=== PATIENT | female | born 1935 | race African-American/Black ===

== ENCOUNTER 2025-10-18 10:28 | Outpatient (AMB) | payer OTHER, SELFPAY ==
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
--- OUTSIDE RECORDS SUMMARY | 2025-10-13 11:55 | XMS_ITS | Encounter Summary ---
Author Organization [facility] Address [address] [place] [address] Care Team Providers Care Crusher Machine Operator Name Role Phone Eugene Lyons MD Primary Care Provider [phone] Encounter Details Date Type Department Care Team (Late Contact Info) Description 10/13/2025 11:55 AM EST Lab Draw Station - [place] [address] [place] [address] Hyperlipidemia, unspecified hyperlipidemia type; Vaginal discharge Social History Tobacco Use Types [...] AM EST documented as of this encounter Plan of Treatment Upcoming Encounters Date Type Department Care Team (Late st Contact Info) Description 10/19/2025 9:15 AM EST Office Visit Orthopedic Surgery - [place] [address] [phone] Tom Morgan, DPM [address] [phone] 10/19/2025 10:30 AM EST Treatment [facility] [address] [phone] Kiya Chahal, PT 10/19/2025 1:30 PM EST Appointment Ultrasound - [address] [phone] 10/25/2025 8:30 AM EST Treatment [address] [phone] Kiya Chahal, PT 11/01/2025 10:30 AM EST Treatment [address] [phone] Kiya Chahal, PT 11/08/2025 10:30 AM EST Treatment [address] [phone] Kiya Chahal, PT 01/01/2026 10:00 AM EST Consult Internal Medicine - [address] [phone] Eugene Lyons MD [address] [place] [address] 01/16/2026 8:00 AM EST Consult Orthopedic Surgery - [place] [address] [phone] Tom Morgan DPM [address] [phone] 01/19/2026 7:30 AM EST Hospital Encounter [facility] [place] [address] [place] [phone] Tom Morgan DPM [address] [phone] 01/19/2026 7:30 AM EST - 01/19/2026 10:00 AM EST Surgery [facility] [place] [address] [place] [phone] Tom Morgan, DPM [address] [phone] IMPLANT TO RIGHT DIGIT OR LESSER METATARSAL [65571 (CPT ) +2 more] 02/01/2026 10:00 AM EDT Office Visit Orthopedic Surgery - [place] [address] [phone] Tom Morgan, DPM [address] [phone] 10/08/2026 12:30 PM EST Office Visit Internal Medicine - [address] [phone] Eugene Lyons MD [address] [place] [phone] Scheduled Procedures Name Priority Associated Diagnoses Date/Ti [...] not met documented as of this encounter Procedures Procedure Name Priority Date/Time Associated Diagnosis Comments URINALYSIS WITH REFLEX MICROSCOPIC AND CULTURE Routine 10/13/2025 11:59 AM EST Vaginal discharge BAJWA URINE CULTURE TUBE Routine 10/13/2025 11:59 AM EST Vaginal discharge URINALYSIS WITH REFLEX MICROSCOPIC AND CULTURE Routine 10/13/2025 11:59 AM EST Vaginal discharge COMPREHENSIVE METABOLIC PANEL Routine 10/13/2025 11:59 AM EST Hyperlipidemia, unspecified hyperlipidemia type documented in this encounter Results * Bajwa urine culture tube (10/13/2025 11:59 AM EST) Pathologist [facility] Extra Tube Hold for add-ons. 10/13/2025 2:01 PM [facility] Comment:Auto resulted. Urine Urine specimen obtained by clean catch procedure / Unknown Non-blood Collection / Unknown 10/13/2025 11:59 AM EST 10/13/2025 11:59 AM EST us Mya Baker NP LAB URINE ORDERABLES Final R esult [facility] [address] [place] [address], * (ABNORMAL) Urinalysis with reflex microscopic and culture (10/13/2025 11:59 AM EST) Pathologist [facility] Specific [place] Urine 1.029 1.003 - 1.030 LAB URINALYSIS - AUTOMATED METHOD 10/13/2025 2:06 PM [facility] pH, Urine 5.5 5.0 - 8.0 pH LAB URINALYSIS - AUTOMATED METHOD 10/13/2025 2:06 PM [facility] Leukocytes, Urine Negative Negative LAB URINALYSIS - AUTOMATED METHOD 10/13/2025 2:06 PM [facility] Nitrite, Urine Negative Negative LAB URINALYSIS - AUTOMATED METHOD 10/13/2025 2:06 PM [facility] Protein, Urine Negative <=Trace mg/dL LAB URINALYSIS - AUTOMATED METHOD 10/13/2025 2:06 PM [facility] Glucose, Urine Negative Negative mg/dL LAB URINALYSIS - AUTOMATED METHOD 10/13/2025 2:06 PM [facility] Ketones, Urine Trace(A) Negative mg/dL LAB URINALYSIS - AUTOMATED METHOD 10/13/2025 2:06 PM [facility] Urobilinogen, Urine 0.2 0.2 - 1.0 mg/dL LAB URINALYSIS - AUTOMATED METHOD 10/13/2025 2:06 PM [facility] Bilirubin, Urine Negative Negative LAB URINALYSIS - AUTOMATED METHOD 10/13/2025 2:06 PM [facility] Blood, Urine Negative Negative LAB URINALYSIS - AUTOMATED METHOD 10/13/2025 2:06 PM [facility] Urine Urine specimen obtained by clean catch procedure / Unknown Non-blood Collection / Unknown 10/13/2025 11:59 AM EST 10/13/2025 11:59 AM EST us Mya Baker RN ED LAB URINE ORDERABLES Final R esult [facility] [address] [place] [address], * (ABNORMAL) Comprehensive metabolic panel (10/13/2025 11:59 AM EST) Sodium 140 133 - 145 mmol/L 10/13/2025 6:41 PM [facility] Potassium 4.1 3.5 - 5.5 mmol/L 10/13/2025 6:41 PM [facility] Chloride 100 96 - 110 mmol/L 10/13/2025 6:41 PM [facility] CO2 34(H) 21 - 32 mmol/L 10/13/2025 6:41 PM [facility] Anion Gap 6 3 - 11 10/13/2025 6:41 PM [facility] Glucose 112(H) 70 - 100 mg/dL 10/13/2025 6:41 PM [facility] BUN 18 5 - 25 mg/dL 10/13/2025 6:41 PM [facility] Creatinine 0.92 0.50 - 1.10 mg/dL 10/13/2025 6:41 PM [facility] eGFR 60 >=60 mL/min/1. 73m2 10/13/2025 6:41 PM [facility] Comment:Calculation based on the Chronic Kidney Disease Epidemiology Collaboration (CKD-EPI) equation refit without adjustment for race. BUN/Creatinine Ratio 19.6 10/13/2025 6:41 PM [facility] Calcium 7.8(L) 8.5 - 10.5 mg/dL 10/13/2025 6:41 PM [facility] AST (SGOT) 26 10 - 42 unit/L 10/13/2025 6:41 PM [facility] ALT (SGPT) 19 10 - 60 unit/L 10/13/2025 6:41 PM [facility] Alkaline Phosphatase 104 42 - 121 unit/L 10/13/2025 6:41 PM [facility] Total Protein 6.3 6.0 - 8.0 g/dL 10/13/2025 6:41 PM [facility] Albumin 3.7 3.2 - 5.0 g/dL 10/13/2025 6:41 PM [facility] Total Bilirubin 0.2 0.0 - 1.4 mg/dL 10/13/2025 6:41 PM [facility] Blood Venous blood specimen / Unknown Venipuncture / Unknown 10/13/2025 11:59 AM EST 10/13/2025 11:59 AM EST us Mya Baker NP LAB BLOOD ORDERABLES Final R esult [facility] [address] [place] [address], documented in this encounter Visit Diagnoses Diagnosis 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 of joint of right foot Acquired hammer toe of right foot Hallux rigidus of right foot Hyperlipidemia, unspecified hyperlipidemia type Vaginal discharge Leukorrhea, not specified as infective 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 of joint of right foot Acquired hammer toe of right foot Hallux rigidus of right foot documented in this encounter Additional Health Concerns Assessment Noted Time PHQ-9 Depression Total Score: 0 10/04/20 25 12:16 PM EST documented as of this encounter Care Teams Crusher Machine Operator Relationship Specialty Start Date End Date Eugene Lyons MD [address] [place] [phone] PCP - General Internal Medicine 07/31/20 documented as of this encounter
--- NOTE | 2025-10-18 10:31 | A.PHYSOV_ITS ---
Vital Signs 10/18/25 10:36 Height 5 ft 6 in Weight 170 lb BMI 27.4 Intake Visit Reasons: 2nd opinion- neck pain Intake Note: Patient is a 89 year old female in office today for a follow up visit as a second opinion on her neck pain. Patient did see [facility] 08/2025. Negative Turner Apprentice Required: No Allergies pneumococcal vaccine Allergy (Unknown, Verified 10/18/25 10:39) Unknown HPI Comments Details: History of Present Illness The patient is an 89 year old individual presenting for evaluation of chronic neck pain and bilateral upper extremity paresthesias. The patient reports increasing right-sided neck and occipital pain with an associated popping sensation. The patient has a history of a multilevel cervical fusion at C4-C6, which was performed approximately 20 years ago and provided great relief. The patient feels that the effects of the previous surgery are now wearing out. Electrodiagnostic studies have shown mild carpal tunnel syndrome but were negative for cervical radiculopathy. For pain management, the patient has previously used topical diclofenac gel and Tylenol as needed. Currently, the patient is taking naproxen, which has provided significant improvement in pain. Patient presented accompanied by her daughter. Pain Description - Onset and Timing: The patient reports increasing chronic neck pain. - Location: The pain is located on the right side of the neck and the occipital area. - Quality and Character: The pain is associated with a popping or crackling sensation. - Radiation: The pain radiates up into the back of the head and occasionally to the front, behind the eye. - Relieving Factors: The patient reports pain is much better when taking naproxen. - Interference with Function: The patient reports being unable to drive due to the symptoms. Results - Imaging: - Cervical spine MRI (dated September 07, 2025): Findings show post-surgical changes from a prior fusion and degeneration above the surgical site. - The recent MRI was noted to not be significantly different from a prior MRI from September 18, 2024. - Tests and Diagnostics: - Electrodiagnostic evaluation of upper extremities: Consistent with mild carpal tunnel syndrome; negative for cervical radiculopathy. 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 Surgical History (Updated 10/09/25 @ 15:16 by Dina Bhat MA) H/O shoulder surgery (Unknown) History of neck surgery (Unknown) H/O: hysterectomy (Unknown) History of (Unknown) Social History (Updated 10/18/25 @ 10:37 by Dina Bhat MA) Alcohol intake: current Alcohol intake frequency: does not drink Patient Tobacco Use Status: Never used Tobacco Use of substances other than those prescribed or required for medical reasons: No Current occupational status: retired Review of Systems Narrative Review of Systems - Neurological: Reports bilateral upper extremity paresthesias and headaches originating from the neck. - Musculoskeletal: Reports chronic right-sided neck pain with popping sensations and leg pain. - Constitutional: Denies difficulty swallowing pills. Patient denies any fever or chills, denies change in bowel bladder habits Physical Exam Exam Exam: Physical Exam - Neck: Palpation elicits tenderness on the right side of the neck and over the occipital region. - Range of motion is significantly limited and tight. Her cervical range of motion was almost non-existent with painful end points in all directions. Neurological examination was nonfocal. Patient demonstrated no upper motor neuron signs. Vital Signs: BMI result Body Mass Index 27.4 Assessment & Plan Assessment & Plan (1) Spondylosis of cervical region without myelopathy or radiculopathy: Code(s): M47.812 - Spondylosis without myelopathy or radiculopathy, cervical region Category: Medical (2) Cervicocranial syndrome: Code(s): M53.0 - Cervicocranial syndrome Category: Medical Plan Pain Management - Affect: The patient expressed a desire to get rid of the pain rather than just manage it. - Analgesia: The patient is currently taking naproxen and reports it is making the patient feel much better. - Previously used topical diclofenac gel and Tylenol as needed. - Activities of Daily Living: The patient reports an inability to drive. - Adverse Effects: No adverse effects from current medications were reported. - Aberrant Drug-Related Behaviors: No aberrant drug-related behaviors were noted. Plan Patient was informed and verbally consented to the use of an ambient scribe for clinic note documentation during this visit. 1. 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 Surgical and non-surgical treatment options were discussed. A referral will be placed to [facility] for a surgical consultation to evaluate for a possible extension of the fusion. Radiofrequency neurotomy was presented as a Plan B for pain control if surgery is not pursued, with potential pain relief for a year to a year and a half. The patient can continue using naproxen for analgesia, and it was noted that meloxicam is a possible alternative. It was also a recommended to start hqvt-ctj-qzpzrvu turmeric at 2000 mg daily, ensuring it contains black pepper. My personal recommendation would be trial diagnostic medial branch blocks and radiofrequency neurotomy for right C2-C3 and C3-C4 facet mediated pain. 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 I reviewed the recent cervical spine MRI, explaining that it supports this diagnosis. We discussed treatment options, emphasizing that the goal is management rather than a cure. I explained that a surgical opinion could be sought, with a possible procedure being an extension of the existing fusion, which could reduce pain but would further limit neck motion. As an alternative, I described radiofrequency neurotomy as a pain control procedure that could provide relief for up to a year and a half, presenting it as a Plan B if surgery is not an option. The patient expressed a strong preference for a surgical evaluation, and we agreed to proceed with a referral to [facility]. We also discussed continuing naproxen for pain and adding tcxx-lil-zjcnkxv turmeric as a natural anti-inflammatory. I emphasized that for any intervention, particularly surgery, the benefits must outweigh the risks, especially considering the patient's age. Patient Instructions - A referral will be sent to the neurosurgery department at [facility] for a consultation to discuss surgical options for your neck pain. - Continue taking naproxen for pain relief as needed. - You may start taking an qfor-krr-rhhmwpb supplement called turmeric at a dose of 2000 mg per day. - When you buy it, make sure the label says it also contains black pepper. - Due to your current symptoms, you are unable to drive. - If the surgeons decide not to operate, we can discuss other options for pain control, such as a procedure called radiofrequency neurotomy. Orders: Referrals Neurosurgery Referral M47.812 - Spondylosis without myelopathy or radiculopathy, cervical region, M53.0 - Cervicocranial syndrome Coding Level of Care Code Est Pt Level 4 (07449) Complex visit Add On G2211 Diagnoses Spondylosis of cervical region without myelopathy or radiculopathy M47.812 Cervicocranial syndrome M53.0
[2025-10-18 10:36] VITALS: BMI 27.4
--- OUTSIDE RECORDS SUMMARY | 2025-10-18 12:00 | XMS_ITS | Encounter Summary ---
Author Organization [facility] Address [address] [place] [address] Care Team Providers Care Shuttle Hand Name Role Phone Eugene Lyons MD Primary Care Provider [phone] Reason for Visit * Reason Onset Date Comments Allergic Reaction 10/13/2025 Encounter Details Date Type Department Care Team (Late st Contact Info) Description 10/13/2025 Telephone Internal Medicine - [address] [phone] Eugene Lyons MD [address] [place] [id number] Social History Tobacco Use Types Packs/Day Years [...] AM EST documented as of this encounter Progress Notes * Donya Vinson RN - 10/13/2025 10:33 AM EST spoke to pt-reports of persisting arm swelling/puffiness;feels itchy deep inside since getting a pneumococcal vaccn on 10/04/25. denies any redness/bleeding. she applied cool compresses with some relief. appt made. * Elidia Robert - 10/13/2025 10:14 AM EST //Patient call requires triage: Symptoms patient is presenting: arm is swollen and puffy from flu shot given at appt How long has patient had these symptoms?: 10/04/25 For ALL patients calling to schedule any appointment (routine, sick visit, follow up, consult, etc.) in the outpatient setting please ask the following questions: Do you have fever of higher than 101, sore throat with difficulty swallowing or severe shortness ofbreath? no If YES to any of these above symptoms, send a message to triage and do not book. Red dot. If no, an audio or video visit should be booked. Have you had close contact with someone with Coronavirus in the last 14 days? no Have you traveled abroad? no Have you traveled recently to another state outside of [place], [place], [place], [place], [place], [place], [place]? no o If yes, did you quarantine for 14 days or have a negative covid test? no If yes to any of the above, patient is not to be scheduled in office until after 14 day quarantine or negative covid test. If pain or injury related was it due to an accident at work or from a motor vehicle accident? If yes, date of accident/Injury: No If yes, gather 3rd green party insurance information Third Green Party Information: not applicable PCP: Eugene Lyons MD Payor: [facility] MEDICARE ADVANTAGE / Plan: [employer] MED[employer]VANTAGE / Product Type: *No Product type* / documented in this encounter Plan of Treatment Upcoming Encounters Date Type Department Care Team (Late st Contact Info) Description 10/19/2025 9:15 AM EST Office Visit Orthopedic Surgery - [place] [address] [phone] Tom Morgan DPM [address] [phone] 10/19/2025 10:30 AM EST Treatment [address] [phone] Kiya Chahal, PT 10/19/2025 1:30 PM EST Appointment Ultrasound - [address] [phone] 10/25/2025 8:30 AM EST Treatment [address] [phone] Kiya Chahal, PT 11/01/2025 10:30 AM EST Treatment [address] [phone] Kiya Chahal, PT 11/08/2025 10:30 AM EST Treatment [address] [phone] Kiya Chahal, PT 01/01/2026 10:00 AM EST Consult Internal Medicine - [address] [phone] Eugene Lyons MD [address] [place] [address] 01/16/2026 8:00 AM EST Consult Orthopedic Surgery - [place] [address] [phone] Tom Morgan DPM [address] [phone] 01/19/2026 7:30 AM EST Hospital Encounter [facility] [place] [address] [place] [phone] Tom Morgan DPM [address] [phone] 01/19/2026 7:30 AM EST - 01/19/2026 10:00 AM EST Surgery [facility] Main [place] [address] [place] [phone] Tom Morgan DPM [address] [phone] IMPLANT TO RIGHT DIGIT OR LESSER METATARSAL [65206 (CPT ) +2 more] 02/01/2026 10:00 AM EDT Office Visit Orthopedic Surgery - [place] [address] [phone] Tom Morgan DPM [address] [phone] 10/08/2026 12:30 PM EST Office Visit Internal Medicine - [address] [phone] Eugene Lyons MD [address] [place] [address] Scheduled Procedures Name Priority Associated Diagnoses Date/Ti [...] testing - Met Pt will complete B [place]-Hallpike tests for assessment of vestibular system involvement of dizziness - not met documented as of this encounter Visit Diagnoses Not on filedocumented in this encounter Additional Health Concerns Assessment Noted Time PHQ-9 Depression Total Score: 0 10/04/20 25 12:16 PM EST documented as of this encounter Care Teams Shuttle Hand Relationship Specialty Start Date End Date Eugene Lyons MD [address] [place] [address] PCP - General Internal Medicine 07/31/20 documented as of this encounter
--- OUTSIDE RECORDS SUMMARY | 2025-10-18 12:00 | XMS_ITS | Encounter Summary ---
Author Organization [facility] Address [address] [place] [address] Care Team Providers Care Grant Writer Name Role Phone Eugene Lyons MD Primary Care Provider [phone] Encounter Details Date Type Department Care Team (Late st Contact Info) Description 10/13/2025 [facility] [address] [place] [address] Violetta Dangelo MA Social History Tobacco Use Types Packs/Day Years [...] AM EST Office Visit Orthopedic Surgery - [place] [address] [phone] Tom Morgan, DPM [address] [phone] 10/19/2025 10:30 AM EST Treatment [facility] [address] [phone] Kiya Chahal, PT 10/19/2025 1:30 PM EST Appointment Ultrasound - [address] [phone] 10/25/2025 8:30 AM EST Treatment [address] [phone] Kiya Chahal, PT 11/01/2025 10:30 AM EST Treatment [address] [phone] Kiya Chahal, PT 11/08/2025 10:30 AM EST Treatment [address] [phone] Kiya Chahal, PT 01/01/2026 10:00 AM EST Consult Internal Medicine - [address] [phone] Eugene Lyons MD [address] [place] [address] 01/16/2026 8:00 AM EST Consult Orthopedic Surgery - [place] [address] [phone] Tom Morgan DPM [address] [phone] 01/19/2026 7:30 AM EST Hospital [facility] Main [place] [address] [place] [phone] Tom oMrgan DPM [address] [phone] 01/19/2026 7:30 AM EST - 01/19/2026 10:00 AM EST Surgery [facility] Main [place] [address] [place] [phone] Tom Morgan, DPM [address] [phone] IMPLANT TO RIGHT DIGIT OR LESSER METATARSAL [89032 (CPT ) +2 more] 02/01/2026 10:00 AM EDT Office Visit Orthopedic Surgery - [place] [address] [phone] Tom Morgan, DPM [address] [phone] 10/08/2026 12:30 PM EST Office Visit Internal Medicine - [address] [phone] Eugene Lyons MD [address] [place] [address] Scheduled Orders Name Type Priority Associated Diagnoses Orde r Schedule Comprehensive metabolic panel Lab Routine Low calcium levels Expected: 10/30/2025, Expires: 10/16/2026 Hemoglobin A1c Lab Routine Blood glucose elevated Expected: 10/16/2025, Expires: 04/16/2026 Scheduled Procedures Name Priority Associated Diagnoses Date/Ti ct IMPLANT TO DIGIT OR LESSER METATARSAL Acquired [...] documented as of this encounter Visit Diagnoses Diagnosis 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 of joint of right foot 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
--- OUTSIDE RECORDS SUMMARY | 2025-10-18 12:00 | XMS_ITS | Encounter Summary ---
Author Organization [facility] Address [address] [place] [address] Care Team Providers Care Garment Form Assembler Name Role Phone Eugene Lyons MD Primary Care Provider [phone] Encounter Details Date Type Department Care Team (Late Contact Info) Description 09/12/2025 Results Follow-Up Internal Medicine - [facility] [address] [place] [address] Mya Rosario, ANGEL [address] [place] [address] Social History Tobacco Use Types Packs/Day Years [...] Encounters Date Type Department Care Team (Late Contact Info) Description 10/19/2025 9:15 AM EST Office Visit Orthopedic Surgery - [place] [address] [phone] Tom Morgan, DPM [address] [phone] 10/19/2025 10:30 AM EST Treatment [address] [phone] Kiya Chahal, PT 10/19/2025 1:30 PM EST Appointment Ultrasound - [address] [phone] 10/25/2025 8:30 AM EST Treatment [address] [phone] Kiya Chahal, PT 11/01/2025 10:30 AM EST Treatment [address] [phone] Kiya Chahal, PT 11/08/2025 10:30 AM EST Treatment [address] [phone] Kiya Chahal, PT 01/01/2026 10:00 AM EST Consult Internal Medicine - [address] [phone] Eugene Lyons MD [address] [place] [address] 01/16/2026 8:00 AM EST Consult Orthopedic Surgery - [place] [address] [phone] Tom Morgan DPM [address] [phone] 01/19/2026 7:30 AM EST Hospital Encounter [facility] [place] [address] [place] [phone] Tom Morgan DPM [address] [phone] 01/19/2026 7:30 AM EST - 01/19/2026 10:[address] [facility] [place] [address] [place] [phone] Tom Morgan, DPSal [address] [phone] IMPLANT TO RIGHT DIGIT OR LESSER METATARSAL [07677 (CPT ) +2 more] 02/01/2026 10:00 AM EDT Office Visit Orthopedic Surgery [place] [address] [phone] Tom Morgan, ANSELMO [address] [phone] 10/08/2026 12:30 PM EST Office Visit Internal Medicine - [address] [phone] Eugene Lyons MD [address] [place] [address] Scheduled Procedures Name Priority Associated Diagnoses Date/Ti [...] Diagnoses Not on filedocumented in this encounter Care Teams Garment Form Assembler Relationship Specialty Start Date End Date Eugene Lyons MD [address] [place] [address] PCP - General Internal Medicine 07/31/20 documented as of this encounter
--- OUTSIDE RECORDS SUMMARY | 2025-10-18 12:00 | XMS_ITS | Clinical Summary ---
Author Organization [facility] [place] Address [address] [place] [address] Care Team Providers Care District Branch Manager Name Role Phone Eugene Lyons MD Primary Care Provider [phone] Allergies Active Allergy Reactions Criticality Noted Date Comments Pneumoc 20-Cherelle Conj-Dip Cr(Pf) Swelling 10/13/2025 persisting arm swelling/puffiness/some itchiness after 10/04/25 vaccn Medications clotrimazole (LOTRIMIN) 1 % cream Apply to skin and toenails daily for 12 weeks 3 Active clotrimazole-bet amethasone (LOTRISONE) 1-0.05 % cream Apply 0.5g to toes twice day 3 Active aspirin 81 mg EC tablet Take 1 tablet (81 mg total) by mouth. Active MULTIVITAMIN ORAL Take by mouth. - Oral Active erythromycin 5 mg/gram (0.5 %) ophthalmic ointment Apply to left eye 3 (three) times a day. 4 Active ammonium lactate (AmLactin) 12 % lotion Apply topically if needed for dry skin. 400 g 5 11/17/19 26 Active linaCLOtide (Linzess) 145 mcg capsuleIndicatio ns:Chronic constipation Take 1 capsule (145 mcg total) by mouth 1 (one) time each day. 90 each 3 5 08/04/20 26 Active primidone (Mysoline) 250 mg tablet Take 1 tablet (250 mg total) by mouth at bedtime. 90 each 1 5 Active naproxen (NAPROSYN) 500 mg tablet Take 1 tablet (500 mg total) by mouth 2 (two) times a day if needed for mild pain or moderate pain (pain). 30 tablet 5 09/19/20 26 Active amoxicillin-clav ulanate (AUGMENTIN) 875-125 mg per tablet Take 1 tablet by mouth 2 (two) times a day for 10 days. 20 each 5 10/23/20 25 Active naproxen (NAPROSYN) 500 mg tablet Take 1 tablet (500 mg total) by mouth 2 (two) times a day if needed for mild pain or moderate pain (pain). 30 tablet 5 09/19/20 25 Discontin ued(Reord er) Active Problems Problem Noted Date Diagnosed Date Acquired hallux valgus of right foot 07/20/2025 Contracture of joint of right foot 07/20/2025 Acquired hammer toe of right foot 07/20/2025 Hallux rigidus of right foot 07/20/2025 Chronic pain of right knee 12/19/2021 Chronic right shoulder pain 12/19/2021 Osteopenia 08/12/2017 Tremor 01/02/2016 Memory deficit 12/10/2015 Hyperlipidemia 12/10/2015 Gastritis and duodenitis 01/04/2008 Overview (01/21/2024): EGD+bx 01/04/2008: Gastric biopsy pathology report indicated mild chronic focal nonspecific inflammatory change, focal atrophy, focal intestinal metaplasia. No evidence of H. Pylori infection. Lymphocytosis 08/03/2007 Back pain 11/25/2005 Cervicalgia 11/25/2005 Encounters Date Type Department Care Team Description 10/13/2025 11:55 AM EST Lab Draw Station - [address] [address] Hyperlipidemia, unspecified hyperlipidemia type; Vaginal discharge 10/13/2025 11:00 AM EST Office Visit Internal Medicine - [address] [phone] Mya Rosario NP Localized swelling of right upper extremity (Primary Dx); Vaginal discharge 10/13/2025 Results Follow-Up Internal Medicine - [address] [phone] DangeloVioletta kim [place] 10/13/2025 Telephone Internal Medicine - [address] [phone] Eugene Lyons MD 10/05/2025 Results Follow-Up Internal [address] [phone] Eugene Lyons MD 10/04/2025 1:00 PM EST Lab Draw Station [address] Screening for thyroid disorder; Screening for hyperlipidemia; Screening for diabetes mellitus; Screening for deficiency anemia 10/04/2025 12:30 PM EST Office Visit Internal Medicine - [address] [phone] Eugene Lyons MD Adult general medical examination (Primary Dx); Screening for deficiency anemia; Screening for hyperlipidemia; Screening for diabetes mellitus; Screening for thyroid disorder; Immunization due 09/27/2025 8:30 AM EST Evaluation [address] [phone] Kiya Chahal, PT Cervicalgia 09/14/2025 Telephone Internal Medicine - [address] [phone] Eugene Lyons MD 09/12/2025 Results Follow-Up Internal [address] [phone] Mya Rosario NP 09/12/2025 Telephone Internal Medicine [address] [phone] Eugene Lyons MD 09/07/2025 10:44 AM EDT - 09/07/2025 11:59 PM EDT Hospital Encounter Radiology Department - [facility] [address] [place] [address] Cervicalgia Discharge Disposition: Home or Self Care 08/25/2025 10:15 AM EDT Office Visit Internal Medicine - [facility] [address] [place] [address] Mya Rosario NP Cervicalgia (Primary Dx) 08/04/2025 8:30 AM EDT Office Visit Gastroenterology - [address] [facility] [address] [place] [address] Sheeba Loving PA Chronic constipation (Primary Dx) 07/20/2025 9:00 AM EDT Office Visit Orthopedic Surgery - [place] [address] [facility] [address] [place] [phone] Tom Morgan, DPM Acquired hallux valgus of right foot (Primary Dx); Contracture of joint of right foot; Acquired hammer toe of right foot; Dermatophytosis of nail; Pain in toe of right foot; Corns and callosities; Pain in toe of left foot; Bilateral femoral artery stenosis (CMS/HCC V24); Hallux rigidus of right foot from Last 3 Months Immunizations Immunization Administration Dates Next Due Hepatitis B (Vrltqbz-P-Euepw , Recombivax HB-Adult) 19yo and older 07/30/2006,03/03/2006,01/30/2006 Influenza trivalent, 0.5mL ( Fluzone High-dose) 65yo and older 10/01/2022 MMR, measles mumps and rubel la Live (Priorix; M-M-R II) 12mo and older 02/14/1991 Measles 01/26/2006 Mumps 01/26/2006 OPV 11/29/1963 PPD Test 01/07/2006 Pfizer (ages 12 & older) Bivalent, COVID-19 09/16 Pneumococcal conjugate 13 va lent (Prevnar 13, PCV13) 2mo and older 06/04/2016 Pneumococcal conjugate 20 va lent (Prevnar 20, PCV 20) 2mo and older 10/04/2025 Pneumococcal polysaccharide 23 valent (Pneumovax 23) 2yo and older 07/09/2017 Rubella 01/26/2006 Td Tetanus diptheria (Tdvax) 7yo and older 01/07 Tdap Tetanus diptheria acell ular pertussis (Boostrix; Adacel) 7yo and older 10/01/2016 Typhoid VICPS (Typhim Vi) 2yo and older 03/01/19 63 Varicella live (Varivax) 12mo and older 01/27/20 06 Surgical History Surgery Date Site/Laterality Comments FLEXIBLE SIGMOIDOSCOPY 01/02/2006 PROCEDURE: WI SIGMOIDOSCOPY FLX DX W/COLLJ SPEC BR/WA IF PFRMD; COMMENT: Dr. Fuller HYSTERECTOMY PROCEDURE: HISTORICAL HYSTERECTOMY HERNIA REPAIR PROCEDURE: REPAIR UMBILICAL HERNIA ESOPHAGOGASTRODUODENOSCOPY 01/04/2008 PROCEDURE: WI EGD TRANSORAL BIOPSY SINGLE/MULTIPLE; COMMENT: gastritis; Path: ROTATOR CUFF REPAIR 1999 Right PROCEDURE: HISTORICAL ROTATOR CUFF REPAIR BREAST BIOPSY 1980 Bilateral PROCEDURE: BX BREAST; PERC NEEDLE CORE W/IMAG GUID; COMMENT: needle asp BREAST SURGERY 1995 Bilateral PROCEDURE: WI UNLISTED PROCEDURE BREAST; COMMENT: cysts removed COLONOSCOPY 02/27/2021 N/A PROCEDURE: HISTORICAL COLONOSCOPY; COMMENT: Diverticulosis. 4 mm ascending colon polyp. Pathology: Tubular adenoma. 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 pylori infection. Family History Medical History Relation Name Comments Prostate cancer Maternal Grandfather Relation Name Status Comments Father (Age 80's) CA of pr ostate Maternal Grandfather Mother Alive age 87 Dec 22. Social History Tobacco Use Types Packs/Day Years [...] Orientation Straight 10/10/2024 10 :56 AM EST Obstetrics History Last Filed Vital Signs Vital Sign Reading Time Taken Comments Blood Pressure 117/75 10/13/2025 11:07 AM EST auto cuff Pulse 84 10/13/2025 11:07 AM EST auto cuff Temperature 36.9 C (98.4 F) 10/13/2025 11:07 AM EST Respiratory Rate - - Oxygen Saturation 96% 2025 9:43 AM EDT Inhaled Oxygen Concentration - - Weight 73.3 kg (161 lb 11.2 oz) 025 11:07 AM EST Height 172.7 cm (5' 8 ) 10/04/2025 12:1 7 PM EST Body Mass Index 24.59 10/04/2025 12:17 PM EST Plan of Treatment Upcoming Encounters Date Type Department Care Team (Late st Contact Info) Description 10/19/2025 9:15 AM EST Office Visit Orthopedic Surgery [facility] [address] [phone] Tom Morgan, DPM [address] [phone] 10/19/2025 10:30 AM EST Treatment [address] [phone] Kiya Chahal, PT 10/19/2025 1:30 PM EST Appointment Ultrasound - [facility] [address] [place] [address] 10/25/2025 8:30 AM EST Treatment [address] [phone] Kiya Chahal, PT 11/01/2025 10:30 AM EST Treatment [address] [phone] Kiya Chahal, PT 11/08/2025 10:30 AM EST Treatment [facility] [address] [phone] Kiya Chahal, PT 01/01/2026 10:00 AM EST Consult Internal Medicine - [facility] [address] [place], [place] [phone] Eugene Lyons MD [address] [place] [address] 01/16/2026 8:00 AM EST Consult Orthopedic Surgery [place] [address] [phone] Tom Morgan DPM [address] [phone] 01/19/2026 7:30 AM EST Hospital Encounter [facility] [place] [address] [place] [phone] Tom Morgan DPM [address] [phone] 01/19/2026 7:30 AM EST - 01/19/2026 10:00 AM EST Surgery [facility] OR [address] [place] [phone] Tom Morgan DPM [address] [phone] IMPLANT TO RIGHT DIGIT OR LESSER METATARSAL [63031 (CPT ) +2 more] 02/01/2026 10:00 AM EDT Office Visit Orthopedic Surgery [place] [address] [phone] Tom Morgan DPM [address] [phone] 10/08/2026 12:30 PM EST Office Visit Internal Medicine - [address] [phone] Eugene Lyons MD [address] [place] [address] Scheduled Procedures Name Priority Associated Diagnoses Date/Ti me IMPLANT TO DIGIT OR LESSER METATARSAL 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 of joint of right foot Acquired hammer toe of right foot Hallux rigidus of right foot 01/19/2026 7:30 AM EST Health Maintenance Due Date Last Done Comments IPV Vaccines (2 of 3 - Adult catch-up series) 12/27/1961 11/29/1961 Falls Risk Assessment 01/18/2021 Medicare Annual Wellness Visit 01/18/2021 Social Influencers of Health Screening 01/18/2021 COVID-19 Vaccine ( season) 2026 08/12/2025, 09/03/2023, 10/01/2022, Additional history exists DTaP,Tdap,and Td Vaccines (3 - Td or Tdap) 10/01/2026 10/01/2016, 01/07/2006 Osteoporosis Screening (Bone Density Screening) 08/12/2027 08/12/2017 Cholesterol Screening (Lipid Panel) 10/04/2030 10/04/2025, 05/30/2025, 10/03/2024, Additional history exists MMR Vaccines Aged Out 02/14/1991 No longer eligi ble based on patient's age to complete this topic Varicella Vaccines Aged Out 01/26/2006 No longer eligible based on patient's age to complete this topic Hepatitis B Vaccines Completed 07/30/2006, 03/03/2006, 01/30/2006 Zoster Vaccines Completed 08/19/2024, 03/17, 01/26/2006 RSV Immunization Adult Patients Completed 12/07/2024 Influenza Vaccine Completed 08/12/2025, , 10/01/2022, Additional history exists Depression Screening Completed 10/04/2025 Pneumococcal Vaccine: 50+ Years Completed 10/04/2025, 07/09/2017, 06/04/2016 HIB Vaccines Aged Out No longer eligi ble based on patient's age to complete this topic HPV Vaccines Aged Out No longer eligi ble based on patient's age to complete this topic Hepatitis A Vaccines Aged Out No long er eligible based on patient's age to complete this topic Meningococcal ACWY Vaccine Aged Out N o longer eligible based on patient's age to complete this topic Meningococcal B Vaccine Aged Out No l onger eligible based on patient's age to complete this topic RSV Immunization Patients Under 20 months Aged Out No longer eligible based on patient's age to complete this topic Goals Goal Patient Goal Type Associated Problems Recent Progress Patient-Stated? Author LTGs General No Sunny Esquivel Pawan, PT Note: Pt will increase cervical extension AROM to 35 degrees to allow for vestibular testing - Met Pt will increase cervical rotation to 45 degrees B to allow for vestibular testing - Met Pt will complete B Tony-Hallpike tests for assessment of vestibular system involvement of dizziness - not met Procedures Procedure Name Priority Date/Time Associated Diagnosis Comments BAJWA URINE CULTURE TUBE Routine 10/13/2025 11:59 AM EST Vaginal discharge URINALYSIS WITH REFLEX MICROSCOPIC AND CULTURE Routine 10/13/2025 11:59 AM EST Vaginal discharge URINALYSIS WITH REFLEX MICROSCOPIC AND CULTURE Routine 10/13/2025 11:59 AM EST Vaginal discharge COMPREHENSIVE METABOLIC PANEL Routine 10/13/2025 11:59 AM EST Hyperlipidemia, unspecified hyperlipidemia type COMPLETE BLOOD COUNT Routine 10/04/2025 12:44 PM EST Screening for deficiency anemia COMPREHENSIVE METABOLIC PANEL Routine 10/04/2025 12:44 PM EST Screening for diabetes mellitus LIPID PANEL WITH REFLEX TO DIRECT LDL Routine 10/04/2025 12:44 PM EST Screening for hyperlipidemia THYROID STIMULATING HORMONE WITH REFLEX TO FREE T4 AND FREE T3 Routine 10/04/2025 12:44 PM EST Screening for thyroid disorder MR CERVICAL SPINE WO AND W CONTRAST Routine 09/07/2025 11:58 AM EDT Cervicalgia DXA BONE DENSITY STUDY 1+ SITS AXIAL SKEL Routine 08/12/2017 9:26 AM EDT Encounter for screening for osteoporosis from Last 3 Months or Most Recently Relevant to Health Maintenance Results * (ABNORMAL) Urinalysis with reflex microscopic and culture (10/13/2025 11:59 AM EST) Specific [place] Urine 1.029 1.003 - 1.030 LAB URINALYSIS [...] 11:59 AM EST 10/13/2025 11:59 AM EST Mya Yuniel Samuel APPOINTMENT MANAGER LAB URINE ORDERABLES Final R esult Performing Organization Address City/[facility]/ZIP Co de Phone Number [facility] [address] [place] [address], * Bajwa urine culture tube (10/13/2025 11:59 AM EST) Pathologist [facility] Extra Tube Hold for add-ons. 10/13/2025 2:01 PM EST [facility] Comment:Auto resulted. Urine Urine specimen obtained by clean catch procedure / Unknown Non-blood Collection / Unknown 10/13/2025 11:59 AM EST 10/13/2025 11:59 AM EST Mya Baker APPOINTMENT MANAGER LAB URINE ORDERABLES Final R esult Performing Organization Address [facility]/ZIP Co de Phone Number [facility] [address] [place] [address], [place] [phone] * (ABNORMAL) Comprehensive metabolic panel (10/13/2025 11:59 AM EST) Only the most recent of2 resultswithin the time period is included. [facility] Sodium 140 133 - 145 mmol/L 10/13/2025 [...] NP LAB BLOOD ORDERABLES Final R esult [facility] [address] [place] [address], * Thyroid stimulating hormone with reflex to free t4 and free t3 (10/04/2025 12:44 PM EST) TSH 0.70 0.40 - 4.00 mcIU/mL 10/04/2025 4:25 PM [facility] Blood Venous blood specimen / Unknown Venipuncture / Unknown 10/04/2025 12:44 PM EST 10/04/2025 12:44 PM EST us Eugene Lyons MD LAB BLOOD ORDERABLES Final Res ult [facility] [address] [place] [address], [place] [phone] * Lipid panel with reflex to direct LDL (10/04/2025 12:44 PM EST) Cholesterol 180 0 - 200 mg/dL 10/04/2025 4:27 PM [facility] Triglycerides 104 0 - 150 mg/dL 10/04/2025 4:27 PM [facility] HDL 65 >=40 mg/dL 10/04/2025 4:27 PM [facility] LDL Calculated 94 0 - 100 mg/dL 10/04/2025 4:27 PM [facility] Comment:Estimated LDL Calcul ated using equation: Total cholesterol - HDL cholesterol - (Triglycerides/5) VLDL Cholesterol Yordy 20.8 mg/dL 10/04/2025 4:27 PM [facility] Non HDL Chol. (LDL+VLDL) 115 <145 mg/dL 10/04/2025 4:27 PM [facility] Chol/HDL Ratio 2.8 0.0 - 4.4 10/04/2025 4:27 PM [facility] Blood Venous blood specimen / Unknown Venipuncture / Unknown 10/04/2025 12:44 PM EST 10/04/2025 12:44 PM EST us Eugene Lyons MD LAB BLOOD ORDERABLES Final Res ult [facility] [address] [place] [address], * (ABNORMAL) Complete blood count (10/04/2025 12:44 PM EST) WBC 4.3(L) 4.8 - 10.8 K/mcL LAB HEMETOLOGY METHOD 10/04/2025 2:40 PM EST [facility] RBC 4.40 3.80 - 4.80 M/mcL LAB HEMETOLOGY METHOD 10/04/2025 2:40 PM EST [facility] Hemoglobin 12.9 11.5 - 16.0 g/dL LAB HEMETOLOGY METHOD 10/04/2025 2:40 PM EST [facility] Hematocrit 40.0 35.0 - 47.0 % LAB HEMETOLOGY METHOD 10/04/2025 2:40 PM EST [facility] MCV 91.1 79.0 - 98.0 FL LAB HEMETOLOGY METHOD 10/04/2025 2:40 PM EST [facility] MCH 29.4 27.0 - 32.0 pcg LAB HEMETOLOGY METHOD 10/04/2025 2:40 PM EST [facility] MCHC 32.3 32.0 - 37.0 g/dL LAB HEMETOLOGY METHOD 10/04/2025 2:40 PM EST [facility] RDW 13.2 11.0 - 15.0 % LAB HEMETOLOGY METHOD 10/04/2025 2:40 PM EST [facility] Platelets 165 130 - 400 K/mcL LAB HEMETOLOGY METHOD 10/04/2025 2:40 PM EST [facility] MPV 12.2(H) 7.0 - 11.0 FL LAB HEMETOLOGY METHOD 10/04/2025 2:40 PM EST [facility] NRBC 0.0 <1.0 % LAB HEMETOLOGY METHOD 10/04/2025 2:40 PM EST [facility] NRBC Absolute 0.00 <0.10 K/mcL LAB HEMETOLOGY METHOD 10/04/2025 2:40 PM EST [facility] Blood Venous blood specimen / Unknown Venipuncture / Unknown 10/04/2025 12:44 PM EST 10/04/2025 12:44 PM EST us Eugene Lyons MD LAB BLOOD ORDERABLES Final Res ult [facility] [address] [place] [address], [place] [phone] * MR Cervical Spine wo and w Contrast (09/07/2025 11:58 AM EDT) Anatomical Region Laterality Modality C-spine, Spine Magnetic Resonan ce 09/09/2025 10:4 9 PM EDT Narrative 09/09/2025 11:08 PM EDT MRI of the cervical spine without and with intravenous contrast. History neck pain. Post operative changes. Examination was performed on 1.5 Sandra magnet without administration of intravenous contrast followed by postcontrast study after administration of 15 mL of DOTAREM. No previous MRI examinations are available for comparison. Plain films of the cervical spine from 06/21/2024 and 07/05/2025 were reviewed. There is straightening of the usual cervical lordosis. There are extensive post operative changes with anterior fusion from C4 to C6 with surgical hardware creates magnetic susceptibility artifact. There is also evidence of from laminectomy from C3 to C7. There is bone marrow edema within the C2 vertebral bodies. There is some probably mild reactive enhancement. The nature is uncertain. There is no cortical break or perivertebral soft tissue swelling. At C2-3 level disc is decreased in height. There is disc osteophyte complex with narrowing of the anterior subarachnoid space. There is narrowing of the C3 neural foramina bilaterally. There is some perineural enhancement. At C3-C4 level there is arm artifact from the surgical screws. There is disc osteophyte complex with narrowing of the anterior subarachnoid space. There is some flattening of the spinal cord and narrowing of the C4 neural foramina. At C4-5 level there is artifact from the surgical metal. There is disc osteophyte complex and stenosis of the lateral recesses and C5 neural foramina. There is no spinal cord compression. There is flattening of the spinal cord. At C5-6 level there is significant artifact from the surgical metal. There is disc osteophyte complex. There is narrowing of the anterior subarachnoid space. There is stenosis of the lateral recesses and neural foramina bilaterally. There is no spinal cord compression. At C6-7 level disc is decreased in height. There is significant artifact from the surgical metal. There is disc/osteophyte complex with narrowing of the anterior subarachnoid space and flattening of the spinal cord. There is stenosis of the lateral recesses and C7 neural foramina. At C7-T1 level disc is decreased in arm height. There is no focal disc herniation spinal stenosis or nerve root compression. At T1-2 level there is disc osteophyte complex. No focal disc herniation spinal stenosis or nerve root compression. Spinal cord was visualized without evidence of focal signal abnormalities. Perivertebral soft tissues appear to be unremarkable. CONCLUSIONS: Extensive post operative changes with anterior fusion from C4 to C6 and laminectomy from C3 to C7. Multilevel bony and discs degenerative changes with stenosis of the lateral recesses and neural foramina and narrowing of the anterior subarachnoid space at multiple levels as detailed in the report. No focal signal abnormalities within the spinal cord. Bone marrow edema and some enhancement within the C2 probably reactive. No abnormal enhancement within the spinal cord or perivertebral soft tissues. -------- FINAL REPORT -------- Dictated By: Michelle Napoles Dictated Date: 09/09/2025 22:49 ET Assigned Physician: Michelle Napoles Reviewed and Electronically Signed By: Michelle Napoles Signed Date: 09/09/2025 23:08 ET Workstation ID: [id number] Transcribed By: Self Edit Transcribed Date: 09/09/2025 22:49 ET Procedure Note Michelle Napoles MD - 09/09/2025 MRI of the cervical spine without and with intravenous contrast. History neck pain. Post operative changes. Examination was performed on 1.5 Sandra magnet without administration ofintravenous contrast followed by postcontrast study after administrationof 15 mL of DOTAREM. No previous MRI examinations are available forcomparison. Plain films of the cervical spine from 06/21/2024 and 07/05/2025were reviewed. There is straightening of the usual cervical lordosis. There are extensivepost operative changes with anterior fusion from C4 to C6 with surgicalhardware creates magnetic susceptibility artifact. There is also evidenceof from laminectomy from C3 to C7. There is bone marrow edema within the C2 vertebral bodies. There is someprobably mild reactive enhancement. The nature is uncertain. There is nocortical break or perivertebral soft tissue swelling. At C2-3 level disc is decreased in height. There is disc osteophytecomplex with narrowing of the anterior subarachnoid space. There isnarrowing of the C3 neural foramina bilaterally. There is some perineuralenhancement. At C3-C4 level there is arm artifact from the surgical screws. There isdisc osteophyte complex with narrowing of the anterior subarachnoid space.There is some flattening of the spinal cord and narrowing of the C4 neuralforamina. At C4-5 level there is artifact from the surgical metal. There is discosteophyte complex and stenosis of the lateral recesses and C5 neuralforamina. There is no spinal cord compression. There is flattening of thespinal cord. At C5-6 level there is significant artifact from the surgical metal. Thereis disc osteophyte complex. There is narrowing of the anteriorsubarachnoid space. There is stenosis of the lateral recesses and neuralforamina bilaterally. There is no spinal cord compression. At C6-7 level disc is decreased in height. There is significant artifactfrom the surgical metal. There is disc/osteophyte complex with narrowingof the anterior subarachnoid space and flattening of the spinal cord.There is stenosis of the lateral recesses and C7 neural foramina. At C7-T1 level disc is decreased in arm height. There is no focal discherniation spinal stenosis or nerve root compression. At T1-2 level thereis disc osteophyte complex. No focal disc herniation spinal stenosis ornerve root compression. Spinal cord was visualized without evidence of focal signalabnormalities. Perivertebral soft tissues appear to be unremarkable. CONCLUSIONS: Extensive post operative changes with anterior fusion from C4 to C6 andlaminectomy from C3 to C7. Multilevel bony and discs degenerative changeswith stenosis of the lateral recesses and neural foramina and narrowing ofthe anterior subarachnoid space at multiple levels as detailed in thereport. No focal signal abnormalities within the spinal cord. Bone marrow edema and some enhancement within the C2 probably reactive. Noabnormal enhancement within the spinal cord or perivertebral softtissues. -------- FINAL REPORT -------- Dictated By: Michelle Napoles Dictated Date: 09/09/2025 22:49 ET Assigned Physician: Michelle Napoles Reviewed and Electronically Signed By: Michelle Napoles Signed Date: 09/09/2025 23:08 ET Workstation ID: [id number] Transcribed By: Self Edit Transcribed Date: 09/09/2025 22:49 ET Mya Baker NP IMG MRI PROCEDURES Final Res ult * DXA BONE DENSITY STUDY 1+ SITS AXIAL SKEL (08/12/2017 9:26 AM EDT) Anatomical Region Laterality Modality Bone Densitometr y 07/09/2017 2:46 PM EDT Narrative 08/12/2017 12:45 PM EDT BONE DENSITY (DEXA) Lumbar Spine T-score is -2.0. (SD relative to 20-29 y/o adult) Z-score is 0.1. (SD relative to age matched peers) This is considered osteopenia by WHO criteria. Left Hip T-score is -1.2. Z-score is 0.1. This is considered osteopenia by WHO criteria. IMPRESSION: This patient is considered to have osteopenia by WHO criteria. This patient has a 8.2% risk of major osteoporotic fracture and a 1.5% risk of hip fracture over the next 10 years. (World Health Organization Fracture Risk Assessment) [facility] Department of Internal Medicine recommends using National Osteoporosis Foundation (NOF) guidelines in treatment decisions related to osteoporosis. NOF guidelines suggest considering treatment for postmenopausal women and men aged 50 or older presenting with the following: History of hip or vertebral fracture. T-score = -2.5 (DXA) at the femoral neck, total hip, or spine, after appropriate evaluation to exclude secondary causes. Low bone mass (T-score between -1.0 and -2.5 at the femoral neck or spine) AND a 10-year probability of a hip fracture = 3% OR a 10-year probability of a major osteoporosis-related fracture = 20% based on the [place]-adapted WHO algorithm Please note that all treatment decisions require clinical judgment and consideration of individual patient factors, including patient preferences, co-morbidities, previous drug use, risk factors not captured in the FRAX model (e.g., frailty, falls, vitamin D deficiency, increased bone turnover, interval significant decline in bone density) and possible under- or over-estimation of fracture risk by FRAX. Optional alternative screening schedule based on naty Urbina., [facility] December 04, 2011 for patients with osteopenia (based on hip BMD T-score) is as follows: * advanced osteopenia (T scores -2.00 to -2.49), BMD testing every year * moderate osteopenia (T scores -1.50 to -1.99), BMD testing every 5 years mild osteopenia or normal BMD (T scores -1.50 and higher), BMD testing every 15 years Procedure Note Sahra Mueller MD - 12/18/2023 BONE DENSITY (DEXA) Lumbar Spine T-score is -2.0. (SD relative to 20-29 y/o adult) Z-score is 0.1. (SD relative to age matched peers) This is considered osteopenia by WHO criteria. Left Hip T-score is -1.2. Z-score is 0.1. This is considered osteopenia by WHO criteria. IMPRESSION: This patient is considered to have osteopenia by WHO criteria. Thispatient has a 8.2% risk of major osteoporotic fracture and a 1.5% risk of hip fracture over the next10 years. (World Health Organization Fracture Risk Assessment) [facility] Department of Internal Medicine recommendsusing National Osteoporosis Foundation (NOF) guidelines in treatment decisions related toosteoporosis. NOF guidelines suggest considering treatment for postmenopausal women and menaged 50 or older presenting with the following: History of hip or vertebral fracture. T-score = -2.5 (DXA) at the femoral neck, total hip, or spine, afterappropriate evaluation to exclude secondary causes. Low bone mass (T-score between -1.0 and -2.5 at the femoral neck or spine)AND a 10-year probability of a hip fracture = 3% OR a 10-year probability of a majorosteoporosis-related fracture = 20% based on the [place]-adapted WHO algorithm Please note that all treatment decisions require clinical judgment andconsideration of individual patient factors, including patient preferences, co- morbidities,previous drug use, risk factors not captured in the FRAX model (e.g., frailty, falls, vitaminD deficiency, increased bone turnover, interval significant decline in bone density) andpossible under- or over-estimation of fracture risk by FRAX. Optional alternative screening schedule based on naty Urbina., [facility] for patients with osteopenia (based on hip BMD T-score) is as follows: * advanced osteopenia (T scores -2.00 to -2.49), BMD testing every year * moderate osteopenia (T scores -1.50 to -1.99), BMD testing every 5years mild osteopenia or normal BMD (T scores -1.50 and higher), BMD testingevery 15 years Shayan Curran MD IM DXA PROCEDURES Final Result from Last 3 Months or Most Recently Relevant to Health Maintenance Insurance [employer] [facility] Care Teams District Branch Manager Relationship Specialty Start Date End Date Eugene Lyons MD [address] [place] [id number] PCP - General Internal Medicine 07/31/20
--- OUTSIDE RECORDS SUMMARY | 2025-10-18 12:00 | XMS_ITS | Encounter Summary ---
Author Organization [facility] Address [address] [place] [address] Care Team Providers Care High Density Press Operator Name Role Phone Eugene Lyons MD Primary Care Provider [phone] Encounter Details Date Type Department Care Team (Late Contact Info) Description 10/05/2025 Results Follow-Up Internal Medicine - [address] [phone] Eugene Lyons MD [address] [place] [id number] Social History Tobacco Use Types Packs/Day Years [...] AM EST Office Visit Orthopedic Surgery - [place] [address] [phone] Tom Morgan, DPM [address] 10/19/2025 10:30 AM EST Treatment [address] [phone] Kiya Chahal, PT 10/19/2025 1:30 PM EST Appointment Ultrasound - [address] [phone] 10/25/2025 8:30 AM EST Treatment [address] [phone] Kiya Chahal, PT 11/01/2025 10:30 AM EST Treatment [address] [phone] Kiya Chahal, PT 11/08/2025 10:30 AM EST Treatment [address] [phone] Kiya Chahal, PT 01/01/2026 10:00 AM EST Consult Internal Medicine - [address] [phone] Eugene Lyons MD [address] [place] [address] 01/16/2026 8:00 AM EST Consult Orth[facility] - [place] [address] [phone] Tom Morgan DPM [address] [phone] 01/19/2026 7:30 AM EST Hospital [facility] Main [place] [address] [place] [phone] Tom Morgan DPM [address] [place] [phone] 01/19/2026 7:30 AM EST - 01/19/2026 10:[address] [facility] Main [place] [address] [place] [phone] Tom Morgan, DPM [address] [phone] IMPLANT TO RIGHT DIGIT OR LESSER METATARSAL [43112 (CPT ) +2 more] 02/01/2026 10:00 AM EDT Office Visit Orthopedic Surgery - [place] [address] [phone] Tom Morgan, DPM [address] [phone] 10/08/2026 12:30 PM EST Office Visit Internal Medicine - [address] [phone] Eugene Lyons MD [address] [place] [address] Scheduled Procedures Name Priority Associated Diagnoses Date/Ti [...] testing - Met Pt will complete B Parma-Hallpike tests for assessment of vestibular system involvement of dizziness - not met documented as of this encounter Visit Diagnoses Not on filedocumented in this encounter Additional Health Concerns Assessment Noted Time PHQ-9 Depression Total Score: 0 10/04/20 25 12:16 PM EST documented as of this encounter Care Teams High Density Press Operator Relationship Specialty Start Date End Date Eugene Lyons MD [address] [place] [address] PCP - General Internal Medicine 07/31/20 documented as of this encounter
--- OUTSIDE RECORDS SUMMARY | 2025-10-18 12:01 | XMS_ITS | Encounter Summary ---
Author Organization [facility] Address [address] [place] [address] Care Team Providers Care Design Eng Name Role Phone Eugene Lyons MD Primary Care Provider [phone] Reason for Visit * Reason Onset Date Comments MRI results 09/12/2025 Encounter Details Date Type Department Care Team (Late st Contact Info) Description 09/12/2025 Telephone Internal Medicine - [address] [phone] Eugene Lyons MD [address] [place] [address] Social History Tobacco Use Types Packs/Day Years [...] as of this encounter Progress Notes * Violetta Dangelo MA - 09/15/2025 4:37 PM EDT Lmtcb on voice mail . Please transfer call to ext : [phone] thanks. KA * Mya Baker NP - 09/13/2025 4:48 PM EDT Ms. Gavin, I have reviewed the MRI of your neck and it shows that you have had previous surgeries on your neck. 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 You also have inflammation of the area. Have you able to see orthopedic? Thank you. Mya Baker NP * Pippa Yusuf LPN - 09/12/2025 2:48 PM EDT Pt's daughter Councilette calling and asking about MRI results. Please advise Thank you * Km Reece - 09/12/2025 2:39 PM EDT Pt's friend is calling would like someone to call and go over mri results from 09/07/25 with pt. Contact : [phone] documented in this encounter Plan of Treatment Upcoming Encounters Date Type Department Care Team (Late st Contact Info) Description 10/19/2025 9:15 AM EST Office Visit Orthopedic Surgery - [place] 250 175 [facility] [address] [place] [address] Tom Morgan, DPM 175 [facility] [address] [place] [phone] 10/19/2025 10:30 AM EST Treatment [facility] [place] [address] [place] [phone] Kiya Chahal, PT 10/19/2025 1:30 PM EST Appointment [place]trasound - [facility] [address] [place], [place] [phone] 10/25/2025 8:30 AM EST Treatment [facility] [address] [phone] Kiya Chahal, PT 11/01/2025 10:30 AM EST Treatment [facility] [address] [phone] Kiya Chahal, PT 11/08/2025 10:30 AM EST Treatment [facility] [address] [phone] Kiya Chahal, PT 01/01/2026 10:00 AM EST Consult Internal Medicine - [address] [phone] Eugene Lyons MD [address] [place] [address] 01/16/2026 8:00 AM EST Consult Orthopedic Surgery - [place] [address] [phone] Tom Morgan DPM [address] [place] [phone] 01/19/2026 7:30 AM EST Hospital Encounter [facility] OR [address] [place] [phone] Tom Morgan DPM [address] [phone] 01/19/2026 7:30 AM EST - 01/19/2026 10:00 AM EST Surgery [facility] OR [address] [place] [phone] Tom Morgan DPM [address] [phone] IMPLANT TO RIGHT DIGIT OR LESSER METATARSAL [89338 (CPT ) +2 more] 02/01/2026 10:00 AM EDT Office Visit Orthopedic Surgery [facility] [address] [phone] Tom Morgan, DPM [address] [phone] 10/08/2026 12:30 PM EST Office Visit Internal Medicine [address] [phone] Eugene Lyons MD [address] [place] [address] Scheduled Procedures Name Priority Associated Diagnoses Date/Ti [...] on filedocumented in this encounter Care Teams Design Eng Relationship Specialty Start Date End Date Eugene Lyons MD [address] [place] [address] PCP - General Internal Medicine 07/31/20 documented as of this encounter
== END 2025-10-18 11:25 | disposition home or self-care (01) ==
LOC: HO.HPHYS 10:28
PROVIDERS: PCP Internal Medicine; Visit Provider Physical Medicine & Rehabilitation
DX: M47.812 Spondylosis without myelopathy or radiculopathy, cervical region (principal); M53.0 Cervicocranial syndrome
CPT/HCPCS: 99214; G2211